=== PATIENT | female | born 1985 | race American Indian/Alaskan Native ===

== ENCOUNTER 2016-06-09 17:13 | Emergency (ER) | payer OTHER ==
[2016-06-09 20:30] VITALS: BP 118/82
--- NOTE | 2016-06-09 21:38 | Emergency Department Report ---
HPI - General Chief Complaint: Skin Rash Time Seen by Provider: 06/09/16 20:42 - HPI HPI: Patient is a 31-year-old female who presents to ED complaining of allergic rash to the skin. Patient states she was at work earlier today when she started experiencing a breakout rash on her upper neck and face region. Patient states she has history of systems no allergies but is unaware of any allergy contact. Patient also states she took a home test on and was positive. She reports less pressure. As 05/07/2016 Patient denies any fevers/chills/nausea/vomiting/dysuria/vaginal bleeding/ abdominal pain/chest pain/shortness of breath or any other problems ED Past Medical Hx - Past Medical History Previous Medical History?: Yes Hx Hypertension: No Hx Congestive Heart Failure: No Hx Diabetes: No Hx Deep Vein Thrombosis: No Hx Renal Disease: No Hx Sickle Cell Disease: No Hx Seizures: No Hx Asthma: No Hx COPD: No Hx HIV: No - Surgical History Past Surgical History?: No - Social History Smoking Status: Never Smoker Substance Use Type: Alcohol, Other - Medications Home Medications: Home Medications Medication Instructions Recorded Confirmed Last Taken Type Valacyclovir HCl [Valtrex] 500 mg PO DAILY 07/29/13 01/19/15 07/28/13 09:00 History Ferrous Sulfate [Feosol 325 MG tab] 325 mg PO BID #90 tablet 07/30/13 01/19/15 Unknown Rx HYDROcodone/APAP 5-325 [[place] 1 each PO Q6HR PRN #15 tablet 01/19/15 Unknown Rx 5-325 mg TAB] Ibuprofen [Motrin 800 MG tab] 800 mg PO TID PRN #30 tablet 01/19/15 Unknown Rx Cyclobenzaprine [Flexeril] 10 mg PO BID PRN #10 tablet 01/19/16 Unknown Rx Ibuprofen [Motrin 600 MG tab] 600 mg PO Q6HR #30 tablet 01/19/16 Unknown Rx Vit-Fe Fumar-FA [ 1 each PO QDAY #90 tablet 06/09/16 Unknown Rx Vitamin] Triamcinolone 0.1% [Kenalog 0.1% 1 applic TP TID #30 gm 06/09/16 Unknown Rx CREAM] diphenhydrAMINE [Benadryl CAP] 50 mg PO QHS PRN #15 capsule 06/09/16 Unknown Rx ED Review of Systems ROS: Stated complaint: RASH / Other details as noted in HPI Constitutional: denies: chills, fever Eyes: denies: eye pain, eye discharge, vision change ENT: denies: ear pain, throat pain, dental pain, hearing loss, congestion Respiratory: denies: cough, shortness of breath, wheezing Cardiovascular: denies: chest pain, palpitations Endocrine: no symptoms reported Gastrointestinal: denies: abdominal pain, nausea, diarrhea Genitourinary: denies: urgency, dysuria, discharge Musculoskeletal: denies: back pain, joint swelling, arthralgia Skin: denies: rash, lesions Neurological: denies: headache, weakness, paresthesias Psychiatric: denies: anxiety, depression Hematological/Lymphatic: denies: easy bleeding, easy bruising Physical Exam - Physical Exam Vital Signs: Vital Signs 06/09/16 06/09/16 17:38 20:28 Temperature 98.9 F 98.1 F Pulse Rate 95 H 91 H Respiratory 18 20 Rate Blood Pressure 136/82 Blood Pressure 118/82 [Left] O2 Sat by Pulse 98 99 Oximetry Physical Exam: GENERAL: Alert and oriented x3, no apparent distress, Normal Gait, atraumatic. HEAD: Head is normocephalic and a-traumatic. EYES: Extra ocular muscles are intact. Pupils are equal, round, and reactive to light and accommodation. MOUTH:Mouth is well hydrated and without lesions. Tonsils nonerythematous or swollen, Uvula midline, Tongue not elevated. Mucous membranes are moist. Posterior pharynx clear, no exudate or lesions. Patent airways. NECK: Supple. Non edematous, No carotid bruits. No lymphadenopathy or thyromegaly. LUNGS: Symetrical with respiration, No wheezing, no rales or crackles, CTAB. HEART: S1, S2 present, regular rate and rhythm without murmur, no rubs, no gallops. ABDOMEN: No organomegaly was noted,Positive bowel sounds, soft, and non- distended. . Nontender to palpation on all Quadrants, NO CVA tenderness. EXTREMITIES/MUSCULOSKELETAL: No cyanosis, clubbing, rash, lesions or edema. Full ROM bilaterally. UE/LE Pulses 2+ bilaterally. LE and UE 5+ strength bilaterally NEUROLOGIC: No focal Deficit, Cranial nerves II through XII are grossly intact. No loss of sensation, PSYCHIATRIC: Mood is congruent with affect, denies suicidal or homicidal ideations. SKIN: Warm and dry, generalized maculopapular lesions spread across frontal aspect of the neck and forehead ED Course Vital Signs 06/09/16 06/09/16 17:38 20:28 Temperature 98.9 F 98.1 F Pulse Rate 95 H 91 H Respiratory 18 20 Rate Blood Pressure 136/82 Blood Pressure 118/82 [Left] O2 Sat by Pulse 98 99 Oximetry ED Medical Decision Making - Medical Decision Making She will female presents with allergic dermatitis. ED course: Discussed the patient limited medications in . Discussed continue to take Benadryl and Zyrtec. Discussed triamcinolone cream to use at home for rash. Patient states she has an appointment with GLOVE BRUSHER on Saturday. Discussed to keep appointment Vital signs are stable patient is in no acute respiratory distress. Critical care attestation.: If time is entered above; I have spent that time in minutes in the direct care of this critically ill patient, excluding procedure time. ED Disposition Clinical Impression: Allergic dermatitis Disposition: DISCHARGED TO HOME OR SELFCARE Is pt being admited?: No Does the pt Need Aspirin: No Condition: Stable Instructions: Contact Dermatitis (ED) Prescriptions: diphenhydrAMINE [Benadryl CAP] 50 mg PO QHS PRN #15 capsule PRN Reason: Allergic Reaction Vit-Fe Fumar-FA [ Vitamin] 1 each PO QDAY #90 tablet Triamcinolone 0.1% [Kenalog 0.1% CREAM] 1 applic TP TID #30 gm Referrals: PRIMARY CAREMD [Primary Care Provider] - 3-5 Days BRE DALTON MD [Referring] - 3-5 Days JUANCHO BAJWA MD [Staff Physician] - 3-5 Days Forms: Work/School Release Form(ED) Time of Disposition: 21:50
== END 2016-06-09 22:05 | disposition home or self-care (01) ==
LOC: ED 17:13
DX: L23.9 Allergic contact dermatitis, unspecified cause (principal)
CPT/HCPCS: 99282

== ENCOUNTER 2018-10-13 09:11 | Emergency (ER) | payer BC, MEDICAID, OTHER, SELFPAY ==
[2018-10-13 09:26] VITALS: BP 118/83
--- NOTE | 2018-10-13 09:50 | Emergency Department Report ---
Minor Respiratory - HPI Chief Complaint: Earache Stated Complaint: LFT EAR PAIN/COUGH Time Seen by Provider: 10/13/18 09:35 Pain Location: Facial, Chest Severity: moderate Minor Respiratory: Yes Able to Tolerate Fluids, Yes Ear Pain, Yes Cough, No Rhinorrhea, No Sore Throat, No Sick Contacts, No Hemoptysis, No Chest Pain, No Shortness of Breath, No Fever Other History: Patient is a 33-year-old female who comes to the ER with a 2 week history of cough and congestion. She has complained of left ear pain and a progressively worsening cough. She was seen in the urgent care and they gave her cough medicine. A week later she went back to the urgent care and they gave her another cough medicine. She comes to the ER today stating that she is getting no better. Patient denies any major medical problems and is on cough med PRN- which she stopped because it does not work. Denies fever. endorses chills. ED Review of Systems ROS: Stated complaint: LFT EAR PAIN/COUGH Other details as noted in HPI Comment: All other systems reviewed and negative ED Past Medical Hx - Past Medical History Previous Medical History?: No Hx Hypertension: No Hx Congestive Heart Failure: No Hx Diabetes: No Hx Deep Vein Thrombosis: No Hx Renal Disease: No Hx Sickle Cell Disease: No Hx Seizures: No Hx Asthma: No Hx COPD: No Hx HIV: No - Surgical History Past Surgical History?: No - Family History Family history: no significant - Social History Smoking Status: Never Smoker Substance Use Type: None - Medications Home Medications: Home Medications Medication Instructions Recorded Confirmed Last Taken Type Amoxicillin/K Clav Tab [Augmentin 1 each PO Q12HR #20 tablet 10/13/18 Unknown Rx 500 MG TAB] Benzonatate [Tessalon Perles] 100 mg PO Q12H PRN #20 capsule 10/13/18 Unknown Rx Cetirizine HCl [ZyrTEC] 10 mg PO DAILY #30 capsule 10/13/18 Unknown Rx Fluticasone [Flonase] 1 spray NS QDAY #1 bottle 10/13/18 Unknown Rx predniSONE [Deltasone] 20 mg PO DAILY #5 tablet 10/13/18 Unknown Rx Minor Respiratory Exam - Exam General: Vital signs noted. No distress. Alert and acting appropriately. HEENT: Yes Moist Mucous Membranes, Yes Maxillary Tenderness, No Pharyngeal Erythema, No Pharyngeal Exudates, No Rhinorrhea, No Conjuctival Injection, No Frontal Tenderness Ear: Left TM Erythema, Left EAC Pain Neck: Yes Supple, No Adenopathy Lungs: Yes Good Air Exchange, Yes Wheezes, Yes Cough, No Ronchi, No Stridor, No Labored Respirations, No Retractions, No Use of Accessory Muscles, No Other Abnormal Lung Sounds Heart: Yes Regular Abdomen: Yes Normal Bowel Sounds, No Tenderness, No Peritoneal Signs Skin: No Rash Neurologic: Alert and oriented, no deficits. Musculoskeletal: Unremarkable. ED Course Vital Signs 10/13/18 09:24 Temperature 98.0 F Pulse Rate 74 Respiratory 20 Rate Blood Pressure 118/83 O2 Sat by Pulse 100 Oximetry ED Medical Decision Making - Medical Decision Making l TM bulging rhonchi bilateral lungs with cough pos max sinus tenderness medicated in ER Dc home with dc plan of care and follow up with pcp Vital Signs 10/13/18 10/13/18 09:24 10:09 Temperature 98.0 F Pulse Rate 74 Respiratory 20 18 Rate Blood Pressure 118/83 O2 Sat by Pulse 100 Oximetry - Differential Diagnosis urti v allergies Critical care attestation.: If time is entered above; I have spent that time in minutes in the direct care of this critically ill patient, excluding procedure time. ED Disposition Clinical Impression: URTI (acute upper respiratory infection), Sinusitis, Bronchitis Disposition: DC-01 TO HOME OR SELFCARE Is pt being admited?: No Does the pt Need Aspirin: No Condition: Stable Instructions: Upper Respiratory Infection (ED), Acute Bronchitis (ED) Additional Instructions: hydrate well with water motrin or tylenol for aches or fever meds as ordered follow up with pcp next week to be sure you are getting better rest Prescriptions: Amoxicillin/K Clav Tab [Augmentin 500 MG TAB] 1 each PO Q12HR #20 tablet predniSONE [Deltasone] 20 mg PO DAILY #5 tablet Fluticasone [Flonase] 1 spray NS QDAY #1 bottle Benzonatate [Tessalon Perles] 100 mg PO Q12H PRN #20 capsule PRN Reason: Cough Cetirizine HCl [ZyrTEC] 10 mg PO DAILY #30 capsule Referrals: MITCHELL HUIZAR MD [Staff Physician] - 3-5 Days Time of Disposition: 09:58
[2018-10-13] MEDS ORDERED: PROVENTIL IH ONE (09:54)
[2018-10-13] MEDS ORDERED: AUGMENTIN 500 MG PO ONE (09:55)
[2018-10-13] MEDS ORDERED: IBUPROFEN PO ONE (09:55)
[2018-10-13] MEDS ORDERED: DECADRON IM ONE (09:55)
== END 2018-10-13 10:27 | disposition home or self-care (01) ==
LOC: ED 09:11
DX: J32.9 Chronic sinusitis, unspecified (principal); J40 Bronchitis, not specified as acute or chronic; Z79.899 Other long term (current) drug therapy
CPT/HCPCS: 94640; 96372; 99282; J1100; 94644

== ENCOUNTER 2018-12-19 03:26 | Emergency (ER) | payer BC, MEDICAID ==
[2018-12-19 04:04] LABS: Hematocrit 38.7 % (30.3-42.9); Hemoglobin 13.4 gm/dl (10.1-14.3); Mean Corpuscular HGB Conc 35 % (30-34); Mean Corpuscular Volume 84 fl (79-97); Platelet Count 278 K/mm3 (140-440); Red Blood Count 4.62 M/mm3 (3.65-5.03); Red Cell Distribution Width 13.8 % (13.2-15.2)
[2018-12-19 04:23] LABS: Basophils % (Auto) 0.6 % (0.0-1.8); Eosinophils # (Auto) 0.2 K/mm3 (0.0-0.4); Eosinophils % (Auto) 2.6 % (0.0-4.3); Lymphocytes # (Auto) 3.1 K/mm3 (1.2-5.4); Lymphocytes % (Auto) 41.1 % (13.4-35.0); Monocytes # (Auto) 0.7 K/mm3 (0.0-0.8); Monocytes % (Auto) 9.2 % (0.0-7.3)
[2018-12-19 04:35] LABS: Alanine Aminotransferase 23 units/L (7-56); Albumin 4.2 g/dL (3.9-5); BUN/Creatinine Ratio 19; Blood Urea Nitrogen 17 mg/dL (7-17); Calcium 8.6 mg/dL (8.4-10.2); Hemolysis Index 12
[2018-12-19] MEDS ORDERED: ONDANSETRON 4 MG/2 ML INJ IV ONE (04:37)
[2018-12-19] MEDS ORDERED: FAMOTIDINE 20 MG/2 ML INJ IV ONE (04:37)
[2018-12-19] MEDS ORDERED: KETOROLAC 30 MG/1 ML INJ IV ONE (04:37)
[2018-12-19 06:11] LABS: Bilirubin,Urine NEG (Negative); Blood,Urine NEG (Negative); Color,Urine Yellow (Yellow); Mucus,Urine FEW /HPF; Protein,Urine <15 mg/dL mg/dL (Negative); Urobilinogen,Urine < 2.0 mg/dL (<2.0); WBC,Urine < 1.0 /HPF (0.0-6.0)
--- NOTE | 2018-12-19 06:22 | Cat Scan Report ---
CT ABDOMEN AND PELVIS WITHOUT CONTRAST INDICATION / CLINICAL INFORMATION: MAIN: Right flank pain SINCE I DAY AGO. TECHNIQUE: Axial CT images were obtained through the abdomen and pelvis without IV contrast. All CT scans at [facility] location are performed using CT dose reduction for ALARA by means of automated exposure control. COMPARISON: None available. FINDINGS: LOWER CHEST: No significant abnormality. LIVER: Punctate calcified granulomas. GALLBLADDER: The gallbladder is round and distended, filled with numerous stones. There is minimal ga llbladder wall thickening, but no significant pericholecystic inflammatory change. BILE DUCTS: No significant abnormality. PANCREAS: No significant abnormality. SPLEEN: Punctate calcified granulomas. ADRENALS: No significant abnormality. RIGHT KIDNEY and URETER: No significant abnormality. LEFT KIDNEY and URETER: No significant abnormality. STOMACH and SMALL BOWEL: No significant abnormality. COLON: No significant abnormality. APPENDIX: No significant abnormality. PERITONEUM: No free fluid. No free air. No fluid collection. LYMPH NODES: No significant adenopathy. AORTA and ARTERIES: No significant abnormality. IVC and VEINS: No significant abnormality. URINARY BLADDER: No significant abnormality. REPRODUCTIVE ORGANS: No significant abnormality. ADDITIONAL FINDINGS: None. SKELETAL SYSTEM: No significant abnormality. IMPRESSION: 1. Numerous gallstones within a round, distended gallbladder with minimal wall thickening, but no sig nificant pericholecystic inflammatory change. Recommend correlation for focal right upper quadrant te nderness to exclude acute cholecystitis. 2. No hydronephrosis or nephrolithiasis. Signer Name: Tracie Monique MD Signed: 12/19/2018 6:17 AM Workstation Name: [id number]
--- NOTE | 2018-12-19 06:36 | Emergency Department Report ---
<ANGELANKIT BYRNES - Last Filed: 12/19/18 06:58> ED Abdominal Pain HPI - General Chief Complaint: Abdominal Pain Stated Complaint: RT SIDE PAIN, BACK PAIN Source: patient Mode of arrival: Ambulatory Limitations: No Limitations - History of Present Illness Initial Comments: Patient is a 33-year-old -[place] female with no past medical history who presents to the ED with complaint of acute onset persistent severe right flank pain that radiates to the right upper quadrant for the last 2 hours with nausea. Patient states that she was asleep but was woken up with severe sharp pain in her right flank that has gone constantly been radiating the right upper quadrant area since onset. Patient denies vomiting, diarrhea, hematuria, dysuria, urinary frequency and urgency, change in vision, chest pain, shortness of breath, sore throat, back pain, he will lifting, traumatic injury, vaginal bleeding, fever, chills, or headache. MD Complaint: abdominal pain, flank pain (right flank), other (nausea) -: Sudden, hour(s) (2) Location: RUQ, R flank Radiation: RUQ, R flank Migration to: no migration Severity scale (0 -10): 5 Quality: cramping, aching, sharp Consistency: constant Improves With: nothing Worsens With: nothing Associated Symptoms: denies other symptoms, nausea. denies: vomiting, diarrhea, fever, constipation, dysuria, hematemesis, hematochezia, melena, anorexia - Related Data Previous Rx's Medication Instructions Recorded Last Taken Type Amoxicillin/K Clav Tab [Augmentin 1 each PO Q12HR #20 tablet 10/13/18 Unknown Rx 500 MG TAB] Benzonatate [Tessalon Perles] 100 mg PO Q12H PRN #20 capsule 10/13/18 Unknown Rx Cetirizine HCl [ZyrTEC] 10 mg PO DAILY #30 capsule 10/13/18 Unknown Rx Fluticasone [Flonase] 1 spray NS QDAY #1 bottle 10/13/18 Unknown Rx predniSONE [Deltasone] 20 mg PO DAILY #5 tablet 10/13/18 Unknown Rx traMADol [Ultram] 50 mg PO Q6HR PRN #12 tablet 11/26/18 Unknown Rx Ondansetron [Zofran Odt] 4 mg PO Q8HR #10 tab.rapdis 12/19/18 Unknown Rx oxyCODONE /ACETAMINOPHEN [Percocet 1 tab PO Q6HR PRN #10 tablet 12/19/18 Unknown Rx 5/325] Allergies Allergy/AdvReac Type Severity Reaction Status Date / Time No Known Allergies Allergy Verified 11/26/18 17:51 ED Review of Systems Constitutional: denies: chills, fever Eyes: denies: eye pain, eye discharge, vision change ENT: denies: ear pain, throat pain Respiratory: denies: cough, shortness of breath, wheezing Cardiovascular: denies: chest pain, palpitations Endocrine: no symptoms reported Gastrointestinal: abdominal pain (right flank), nausea. denies: diarrhea Genitourinary: denies: urgency, dysuria, discharge Musculoskeletal: back pain. denies: joint swelling, arthralgia Skin: denies: rash, lesions Neurological: denies: headache, weakness, paresthesias Psychiatric: denies: anxiety, depression Hematological/Lymphatic: denies: easy bleeding, easy bruising ED Past Medical Hx - Past Medical History Previous Medical History?: No Hx Hypertension: No Hx Congestive Heart Failure: No Hx Diabetes: No Hx Deep Vein Thrombosis: No Hx Renal Disease: No Hx Sickle Cell Disease: No Hx Seizures: No Hx Asthma: No Hx COPD: No Hx HIV: No - Surgical History Past Surgical History?: No - Social History Smoking Status: Never Smoker Substance Use Type: None - Medications Home Medications: Home Medications Medication Instructions Recorded Confirmed Last Taken Type Amoxicillin/K Clav Tab [Augmentin 1 each PO Q12HR #20 tablet 10/13/18 Unknown Rx 500 MG TAB] Benzonatate [Tessalon Perles] 100 mg PO Q12H PRN #20 capsule 10/13/18 Unknown Rx Cetirizine HCl [ZyrTEC] 10 mg PO DAILY #30 capsule 10/13/18 Unknown Rx Fluticasone [Flonase] 1 spray NS QDAY #1 bottle 10/13/18 Unknown Rx predniSONE [Deltasone] 20 mg PO DAILY #5 tablet 10/13/18 Unknown Rx traMADol [Ultram] 50 mg PO Q6HR PRN #12 tablet 11/26/18 Unknown Rx Ondansetron [Zofran Odt] 4 mg PO Q8HR #10 tab.rapdis 12/19/18 Unknown Rx oxyCODONE /ACETAMINOPHEN [Percocet 1 tab PO Q6HR PRN #10 tablet 12/19/18 Unknown Rx 5/325] ED Physical Exam - General Limitations: No Limitations General appearance: alert, in no apparent distress - Head Head exam: Present: atraumatic, normocephalic, normal inspection - Eye Eye exam: Present: normal appearance, PERRL, EOMI Pupils: Present: normal accommodation - ENT ENT exam: Present: normal exam, normal orophraynx, mucous membranes moist, TM's normal bilaterally, normal external ear exam - Neck Neck exam: Present: normal inspection, full ROM - Respiratory Respiratory exam: Present: normal lung sounds bilaterally. Absent: respiratory distress, wheezes, rales, rhonchi, chest wall tenderness, accessory muscle use, decreased breath sounds, prolonged expiratory - Cardiovascular Cardiovascular Exam: Present: regular rate, normal rhythm, normal heart sounds. Absent: systolic murmur, diastolic murmur, rubs, gallop - GI/Abdominal GI/Abdominal exam: Present: soft, tenderness (Palpable right flank and RUQ tenderness), guarding, normal bowel sounds. Absent: rebound, rigid, hyperactive bowel sounds, hypoactive bowel sounds, organomegaly - Extremities Exam Extremities exam: Present: normal inspection, full ROM, normal capillary refill - Back Exam Back exam: Present: normal inspection, full ROM. Absent: tenderness, CVA tenderness (R), CVA tenderness (L), muscle spasm, paraspinal tenderness, vertebral tenderness - Neurological Exam Neurological exam: Present: alert, oriented X3, CN II-XII intact, normal gait - Psychiatric Psychiatric exam: Present: normal affect, normal mood - Skin Skin exam: Present: warm, dry, intact, normal color. Absent: rash ED Course - Reevaluation(s) Reevaluation #1: 12/19/18 06:46 This 33-year-old female with no past medical history presented to the ED with acute onset right flank pain that radiates to the right upper quadrant area with nausea for 12 hours. In the ED, patient is alert and oriented 3 and is not in distress but appears to be in pain. On reevaluation, patient's pain is well controlled with medications, patient resting comfortably in the bed and occasionally dozing off. Lab test results were reviewed and are all nonactionable. Abdomen pelvis CT scan without contrast shows numerous gallstones within a round, distended gallbladder with minimal wall thickening, but no significant pericholecystic inflammatory change. Recommend correlation for focal right upper quadrant tenderness to exclude acute cholecystitis. In addition, there was no hydronephrosis or nephrolithiasis. Gallbladder ultrasound was ordered and the results are pending. ED Medical Decision Making - Lab Data Result diagrams: 12/19/18 03:44 12/19/18 03:44 - Radiology Data Radiology results: report reviewed, image reviewed Findings [facility] [address] [id number] Cat Scan Report Signed Patient: JEANA ANDINO MR#: [id number] : 1985 Acct:[id number] Age/Sex: 33 / F ADM Date: 12/19/18 Loc: ED Attending Dr: Ordering Physician: NANI ESPINAL Date of Service: 12/19/18 Procedure(s): CT abdomen pelvis wo con Accession Number(s): [id number] cc: NANI ESPINAL CT ABDOMEN AND PELVIS WITHOUT CONTRAST INDICATION / CLINICAL INFORMATION: MAIN: Right flank pain SINCE I DAY AGO. TECHNIQUE: Axial CT images were obtained through the abdomen and pelvis without IV contrast. All CT scans at this location are performed using CT dose reduction for ALARA by means of automated exposure control. COMPARISON: None available. FINDINGS: LOWER CHEST: No significant abnormality. LIVER: Punctate calcified granulomas. GALLBLADDER: The gallbladder is round and distended, filled with numerous stones. There is minimal gallbladder wall thickening, but no significant pericholecystic inflammatory change. BILE DUCTS: No significant abnormality. PANCREAS: No significant abnormality. SPLEEN: Punctate calcified granulomas. ADRENALS: No significant abnormality. RIGHT KIDNEY and URETER: No significant abnormality. LEFT KIDNEY and URETER: No significant abnormality. STOMACH and SMALL BOWEL: No significant abnormality. COLON: No significant abnormality. APPENDIX: No significant abnormality. PERITONEUM: No free fluid. No free air. No fluid collection. LYMPH NODES: No significant adenopathy. AORTA and ARTERIES: No significant abnormality. IVC and VEINS: No significant abnormality. URINARY BLADDER: No significant abnormality. REPRODUCTIVE ORGANS: No significant abnormality. ADDITIONAL FINDINGS: None. SKELETAL SYSTEM: No significant abnormality. IMPRESSION: 1. Numerous gallstones within a round, distended gallbladder with minimal wall thickening, but no significant pericholecystic inflammatory change. Recommend correlation for focal right upper quadrant tenderness to exclude acute cholecystitis. 2. No hydronephrosis or nephrolithiasis. Signer Name: Tracie Monique MD Signed: 12/19/2018 6:17 AM Workstation Name: [id number] Transcribed By: [facility] Dictated By: Tracie Monique MD Electronically Authenticated By: Tracie Monique MD Signed Date/Time: 12/19/18616 DD/ 7 TD/TT: - Medical Decision Making This 33-year-old female with no past medical history presented to the ED with acute onset right flank pain that radiates to the right upper quadrant area with nausea for 12 hours. In the ED, patient is alert and oriented 3 and is not in distress but appears to be in pain. On reevaluation, patient's pain is well controlled with medications, patient resting comfortably in the bed and occasionally dozing off. Lab test results were reviewed and are all nonactionable. Abdomen pelvis CT scan without contrast shows numerous gallst ones within a round, distended gallbladder with minimal wall thickening, but no significant pericholecystic inflammatory change. Recommend correlation for focal right upper quadrant tenderness to exclude acute cholecystitis. In addition, there was no hydronephrosis or nephrolithiasis. Gallbladder ultrasound was ordered and the results are pending. Patient care was transferred to Jaqueline Yuan NP at shift change at 0700am. - Differential Diagnosis Cholelithiasis; Kidney stones; Flank pain; acute UTI; GERD ED Disposition Clinical Impression: Acute abdominal pain in right flank, Acute abdominal pain in right upper quadrant, Multiple gallstones Cholelithiasis Qualifiers: Cholelithiasis location: gallbladder Cholecystitis presence: without cholecy stitis Biliary obstruction: without biliary obstruction Qualified Code(s): K80.20 - Calculus of gallbladder without cholecystitis without obstruction Disposition: DC-01 TO HOME OR SELFCARE Condition: Stable Instructions: Abdominal Pain (ED) Additional Instructions: Take medications as directed. No drinking or driving while taking medications. Follow up with the selective referral given at discharge. Return back to the ED for worsening symptoms or concerns. Avoid greasy, spicy and fatty foods. Prescriptions: oxyCODONE /ACETAMINOPHEN [Percocet 5/325] 1 tab PO Q6HR PRN #10 tablet PRN Reason: Pain Ondansetron [Zofran Odt] 4 mg PO Q8HR #10 tab.rapdis Referrals: EDWIN NAIDU MD [Staff Physician] - 3-5 Days Time of Disposition: 06:55 Print Language: SINHALA <ALHAJIHUDSON D - Last Filed: 12/19/18 08:59> ED Review of Systems ROS: Stated complaint: RT SIDE PAIN, BACK PAIN Other details as noted in HPI ED Course Vital Signs 12/19/18 12/19/18 12/19/18 03:32 05:09 05:39 Temperature 98.6 F Pulse Rate 73 Respiratory 18 16 16 Rate Blood Pressure 142/96 O2 Sat by Pulse 100 Oximetry ED Medical Decision Making - Lab Data Result diagrams: 12/19/18 03:44 12/19/18 03:44 - Radiology Data LIMITED RUQ ABDOMINAL ULTRASOUND INDICATION: RUQ PAIN: R/O Cholecystitis. COMPARISON: Noncontrast CT abdomen and pelvis performed the same day. FINDINGS: Pancreas: Visualized portions show no significant abnormality. Abdominal Aorta: No significant abnormality. IVC: No significant abnormality. Liver: The liver measures 15 cm in length. No significant abnormality. Normal hepatopedal blood flow in the main portal vein. Gallbladder: There are numerous shadowing gallstones within the gallbladder. The gallbladder is not distended however there is mild diffuse gallbladder wall thickening measuring 4- 5 mm. No significant cervical cystic fluid. Negative Luu's sign per the technologist. Bile ducts: No significant abnormality. Common bile duct measures 5.2 mm. No obvious choledocholithiasis on ultrasound. Right kidney: No significant abnormality visualized.. Free fluid: None. Additional Findings: None. IMPRESSION: Cholelithiasis. There is mild gallbladder wall thickening but no significant distention or surrounding fluid. - Medical Decision Making Radiology ultrasound revealed Cholelithiasis. There is mild gallbladder wall thickening but no significant distention or surrounding fluid. Patient was sent home with Percocet and Zofran, instructed to follow up with the surgeon, diet to avoid that precipitates a flare-up, she verbalized understanding Critical care attestation.: If time is entered above; I have spent that time in minutes in the direct care of this critically ill patient, excluding procedure time. ED Disposition Is pt being admited?: No Does the pt Need Aspirin: No
[2018-12-19 07:12] LABS: Basophils % (Manual) 0 % (0.0-1.8); Total Cells Counted 100
[2018-12-19 07:13] LABS: Anisocytosis Few; Platelet Estimate Consistent w Auto
--- NOTE | 2018-12-19 08:26 | Ultrasound Report ---
LIMITED RUQ ABDOMINAL ULTRASOUND INDICATION: RUQ PAIN: R/O Cholecystitis. COMPARISON: Noncontrast CT abdomen and pelvis performed the same day. FINDINGS: Pancreas: Visualized portions show no significant abnormality. Abdominal Aorta: No significant abnormality. IVC: No significant abnormality. Liver: The liver measures 15 cm in length. No significant abnormality. Normal hepatopedal blood flow in the main portal vein. Gallbladder: There are numerous shadowing gallstones within the gallbladder. The gallbladder is not d istended however there is mild diffuse gallbladder wall thickening measuring 4-5 mm. No significant c ervical cystic fluid. Negative Luu's sign per the technologist. Bile ducts: No significant abnormality. Common bile duct measures 5.2 mm. No obvious choledocholithia sis on ultrasound. Right kidney: No significant abnormality visualized.. Free fluid: None. Additional Findings: None. IMPRESSION: Cholelithiasis. There is mild gallbladder wall thickening but no significant distention or surroundi ng fluid. Signer Name: Дмитрий Kamara Jr, MD Signed: 12/19/2018 8:22 AM Workstation Name: [id number]
[2018-12-19 09:42] VITALS: BP 121/85
== END 2018-12-19 09:16 | disposition home or self-care (01) ==
LOC: ED 03:26
DX: R11.0 Nausea (principal); K80.20 Calculus of gallbladder without cholecystitis without obstruction; K80.80 Other cholelithiasis without obstruction
CPT/HCPCS: 36415; 74176; 76705; 80053; 81001; 84703; 85007; 85025; 96374; 96375; 99284; J1885; J2405

== ENCOUNTER 2019-08-15 10:21 | Emergency (ER) | payer MEDICAID ==
[2019-08-15 12:08] LABS: Amorphous Crystals,Urine Few; Bilirubin,Urine NEG (Negative); Blood,Urine NEG (Negative); Color,Urine Yellow (Yellow); Mucus,Urine 3+ /HPF; Protein,Urine <15 mg/dL mg/dL (Negative)
[2019-08-15 12:29] LABS: Basophils % (Auto) 0.3 % (0.0-1.8); Eosinophils # (Auto) 0.1 K/mm3 (0.0-0.4); Eosinophils % (Auto) 0.4 % (0.0-4.3); Hematocrit 42.1 % (30.3-42.9); Hemoglobin 14.6 gm/dl (10.1-14.3); Lymphocytes # (Auto) 1.6 K/mm3 (1.2-5.4); Lymphocytes % (Auto) 10.9 % (13.4-35.0); Mean Corpuscular HGB Conc 35 % (30-34); Mean Corpuscular Volume 84 fl (79-97); Monocytes # (Auto) 0.9 K/mm3 (0.0-0.8); Monocytes % (Auto) 6.5 % (0.0-7.3); Platelet Count 258 K/mm3 (140-440); Red Cell Distribution Width 13.9 % (13.2-15.2)
[2019-08-15 12:48] LABS: Alanine Aminotransferase 35 units/L (7-56); Albumin 4.6 g/dL (3.9-5); BUN/Creatinine Ratio 19; Blood Urea Nitrogen 17 mg/dL (7-17); Calcium 9.4 mg/dL (8.4-10.2); Hemolysis Index 2
[2019-08-15 18:51] VITALS: BP 126/83
== END 2019-08-15 18:45 | disposition home or self-care (01) ==
LOC: ED 10:21
DX: K80.20 Calculus of gallbladder without cholecystitis without obstruction (principal); Z79.899 Other long term (current) drug therapy
CPT/HCPCS: 36415; 76705; 80053; 81001; 83690; 85025; Q0162

== ENCOUNTER 2020-11-16 07:37 | Emergency (ER) | payer MEDICAID ==
[2020-11-16 07:55] VITALS: BP 137/81
--- NOTE | 2020-11-16 08:59 | XRay Report ---
RIGHT ANKLE 2 VIEWS INDICATION: PAIN SP FALL. COMPARISON: None. IMPRESSION: There is mild soft tissue swelling. No acute osseous abnormality or joint pathology is a ppreciated. RIGHT FOOT 3 VIEWS INDICATION: PAIN SP FALL. COMPARISON: None. IMPRESSION: No acute osseous or soft tissue abnormality. No significant DJD. Signer Name: Дмитрий Kamara Jr, MD Signed: 11/16/2020 8:54 AM Workstation Name: [id number]
--- NOTE | 2020-11-16 09:31 | Emergency Department Report ---
ED Lower Extremity HPI - General Chief Complaint: Extremity Injury, Lower Stated Complaint: RT FOOT INJURY Time Seen by Provider: 11/16/20 08:03 Source: patient Mode of arrival: Wheelchair Limitations: No Limitations - History of Present Illness Initial Comments: 35 yo AA comes to ER p rolling her ankle last night. C/o right foot and ankle pain. Pt comes to ER via POV. 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 Pt denies any other injury. DP plus 2; mild lateral mal swelling on exam; foot warm; rapid cap refill. Complaint: ankle injury -: Sudden, hour(s) Injury: Ankle: Right, Foot: Right Type of Injury: eversion Place: home Severity: mild Severity scale (0 -10): 3 Improves With: nothing Worsens With: movement Context: fall Associated Symptoms: swelling - Related Data Previous Rx's Medication Instructions Recorded Last Taken Type Gabapentin 600 mg PO BID #30 capsule 10/01/19 Unknown Rx Ondansetron [Zofran ODT TAB] 4 mg PO Q6H PRN #20 tab.rapdis 10/01/19 Unknown Rx Acetaminophen [Acetaminophen TAB] 650 mg PO Q4H PRN tablet 10/14/19 Unknown Rx Allergies Allergy/AdvReac Type Severity Reaction Status Date / Time No Known Allergies Allergy Verified 11/26/18 17:51 ED Review of Systems ROS: Stated complaint: RT FOOT INJURY Other details as noted in HPI Comment: All other systems reviewed and negative Musculoskeletal: as per HPI ED Past Medical Hx - Past Medical History Previous Medical History?: Yes Hx Hypertension: No Hx Congestive Heart Failure: No Hx Diabetes: No Hx Deep Vein Thrombosis: No Hx Liver Disease: No Hx Renal Disease: No Hx HIV: No Additional medical history: Gallstones - Surgical History Past Surgical History?: Yes Hx Cholecystectomy: Yes - Family History Family history: no significant - Social History Smoking Status: Never Smoker Substance Use Type: None - Medications Home Medications: Home Medications Medication Instructions Recorded Confirmed Last Taken Type Gabapentin 600 mg PO BID #30 capsule 10/01/19 10/14/19 Unknown Rx Ondansetron [Zofran ODT TAB] 4 mg PO Q6H PRN #20 tab.rapdis 10/01/19 10/14/19 Unknown Rx Acetaminophen [Acetaminophen TAB] 650 mg PO Q4H PRN tablet 10/14/19 Unknown Rx ED Physical Exam - General Limitations: No Limitations General appearance: alert, in no apparent distress - Head Head exam: Present: atraumatic, normocephalic - Eye Eye exam: Present: normal appearance - ENT ENT exam: Present: mucous membranes moist - Neck Neck exam: Present: normal inspection - Respiratory Respiratory exam: Present: normal lung sounds bilaterally. Absent: respiratory distress - Cardiovascular Cardiovascular Exam: Present: regular rate, normal rhythm. Absent: systolic murmur, diastolic murmur, rubs, gallop - GI/Abdominal GI/Abdominal exam: Present: soft, normal bowel sounds - Extremities Exam Extremities exam: Present: normal inspection - Expanded Lower Extremity Exam Right Lower Leg exam: Present: normal inspection Ankle exam: Present: full ROM, tenderness, swelling Foot/Toe exam: Present: tenderness Neuro vascular tendon exam: Present: no vascular compromise Gait: Positive: observed and limited by pain - Back Exam Back exam: Present: normal inspection - Neurological Exam Neurological exam: Present: alert, oriented X3 - Psychiatric Psychiatric exam: Present: normal affect, normal mood - Skin Skin exam: Present: warm, dry, intact, normal color. Absent: rash ED Course Vital Signs 11/16/20 07:53 Temperature 98.3 F Pulse Rate 76 Respiratory 16 Rate Blood Pressure 137/81 O2 Sat by Pulse 100 Oximetry ED Lower Extremity MDM - Radiology Data Radiology results: report reviewed, image reviewed no fx - Medical Decision Making Vital Signs 11/16/20 07:53 Temperature 98.3 F Pulse Rate 76 Respiratory 16 Rate Blood Pressure 137/81 O2 Sat by Pulse 100 Oximetry xray noted medicated for pain levon/crutches for comfort Pt d/c home with dc plan of care including RICE, pain management and ortho follow up. Pt verbalizes understanding of plan of care. On d/c RLE remains neurovasc intact with plus 2 DP - before and after placement of levon wrap - Differential Diagnosis ro fx Critical care attestation.: If time is entered above; I have spent that time in minutes in the direct care of this critically ill patient, excluding procedure time. ED Disposition Clinical Impression: Ankle sprain, Foot sprain Disposition: HOME / SELF CARE / HOMELESS Is pt being admited?: No Does the pt Need Aspirin: No Condition: Stable Instructions: Ankle Sprain Additional Instructions: rest ice elevate levon for comfort crutches for comfort follow up ortho tez for reeval referral below Referrals: LIZZIE GHOSH MD [Staff Physician] - 3-5 Days Time of Disposition: 09:30
== END 2020-11-16 09:58 | disposition home or self-care (01) ==
LOC: ED 07:37
DX: S93.601A Unspecified sprain of right foot, initial encounter (principal); S93.401A Sprain of unspecified ligament of right ankle, initial encounter; K80.80 Other cholelithiasis without obstruction; Z98.890 Other specified postprocedural states; X58.XXXA Exposure to other specified factors, initial encounter; Y93.89 Activity, other specified; Y92.89 Other specified places as the place of occurrence of the external cause; Y99.8 Other external cause status
CPT/HCPCS: 99283

== ENCOUNTER 2021-04-13 18:43 | Emergency (ER) | payer MEDICAID ==
[2021-04-13 18:52] VITALS: BP 121/88
[2021-04-13] MEDS ORDERED: SODIUM CHLORIDE 0.9% 1000 ML 1,000 ML IV ONE (19:02)
[2021-04-13] MEDS ORDERED: FAMOTIDINE 20 MG/2 ML INJ IV ONE (19:02)
[2021-04-13] MEDS ORDERED: diphenhydrAMINE 50 MG/ML VIAL IV ONE (19:02)
[2021-04-13] MEDS ORDERED: dexAMETHasone 20 MG/5 ML VIAL IV ONE (19:02)
--- NOTE | 2021-04-13 20:28 | Emergency Department Report ---
ED General Adult HPI - General Chief complaint: Allergic Reaction Stated complaint: ALLERGIC REACTION Time Seen by Provider: 04/13/21 19:03 Source: patient Mode of arrival: Ambulatory Limitations: No Limitations - History of Present Illness Initial comments: 36-year-old -[place] female patient presents with diffuse itchiness and hives after receiving an allergy shot from her biomedical equipment specialist earlier today. She states her symptoms started about 3:57 PM. She took one Benadryl and some symptoms improved. She states she initially did have some wheezing, but denies any dysphagia, swelling of the throat, or chest pain. No known drug allergies per patient. - Related Data Previous Rx's Medication Instructions Recorded Last Taken Type Gabapentin 600 mg PO BID #30 capsule 10/01/19 Unknown Rx Ondansetron [Zofran ODT TAB] 4 mg PO Q6H PRN #20 tab.rapdis 10/01/19 Unknown Rx Acetaminophen [Acetaminophen TAB] 650 mg PO Q4H PRN tablet 10/14/19 Unknown Rx Famotidine [Pepcid] 20 mg PO BID 7 Days #14 tablet 04/13/21 Unknown Rx Loratadine [Claritin] 10 mg PO QDAY 7 Days #7 tab 04/13/21 Unknown Rx Prednisone [predniSONE 10 mg 10 mg PO .TAPER #1 pack 04/13/21 Unknown Rx (6-Day Pack, 21 Tabs)] Allergies Allergy/AdvReac Type Severity Reaction Status Date / Time No Known Allergies Allergy Verified 11/26/18 17:51 ED Review of Systems ROS: Stated complaint: ALLERGIC REACTION Other details as noted in HPI Constitutional: denies: chills, fever, malaise Respiratory: see HPI. denies: cough, shortness of breath Cardiovascular: denies: chest pain Skin: rash, pruritus ED Past Medical Hx - Past Medical History Previous Medical History?: Yes Hx Hypertension: No Hx Congestive Heart Failure: No Hx Diabetes: No Hx Deep Vein Thrombosis: No Hx Liver Disease: No Hx Renal Disease: No Hx HIV: No Additional medical history: Gallstones - Surgical History Past Surgical History?: Yes Hx Cholecystectomy: Yes - Social History Smoking Status: Never Smoker Substance Use Type: None - Medications Home Medications: Home Medications Medication Instructions Recorded Confirmed Last Taken Type Gabapentin 600 mg PO BID #30 capsule 10/01/19 10/14/19 Unknown Rx Ondansetron [Zofran ODT TAB] 4 mg PO Q6H PRN #20 tab.rapdis 10/01/19 10/14/19 Unknown Rx Acetaminophen [Acetaminophen TAB] 650 mg PO Q4H PRN tablet 10/14/19 Unknown Rx Famotidine [Pepcid] 20 mg PO BID 7 Days #14 tablet 04/13/21 Unknown Rx Loratadine [Claritin] 10 mg PO QDAY 7 Days #7 tab 04/13/21 Unknown Rx Prednisone [predniSONE 10 mg 10 mg PO .TAPER #1 pack 04/13/21 Unknown Rx (6-Day Pack, 21 Tabs)] ED Physical Exam - General Limitations: No Limitations General appearance: alert, in no apparent distress, obese - Head Head exam: Present: atraumatic, normocephalic - Eye Eye exam: Present: normal appearance. Absent: scleral icterus - ENT ENT exam: Present: normal exam, normal orophraynx - Neck Neck exam: Present: normal inspection - Respiratory Respiratory exam: Present: normal lung sounds bilaterally. Absent: respiratory distress, wheezes, rales, rhonchi, stridor, accessory muscle use - Cardiovascular Cardiovascular Exam: Present: normal rhythm, tachycardia, normal heart sounds - Extremities Exam Extremities exam: Present: full ROM - Neurological Exam Neurological exam: Present: alert, oriented X3, normal gait - Psychiatric Psychiatric exam: Present: normal affect, normal mood - Skin Skin exam: Present: warm, dry, intact, urticaria (Diffuse noted to bilateral legs arms chest abdomen and neck) ED Course Vital Signs 04/13/21 04/13/21 18:51 20:42 Temperature 98.6 F Pulse Rate 133 H 94 H Respiratory 18 Rate Blood Pressure 121/88 O2 Sat by Pulse 100 Oximetry ED Medical Decision Making - Medical Decision Making 36-year-old -[place] female patient presents with diffuse itchiness and hives after receiving an allergy shot from her biomedical equipment specialist earlier today. She states her symptoms started about 3:57 PM. She took one Benadryl and some symptoms improved. She states she initially did have some wheezing, but denies any dysphagia, swelling of the throat, or chest pain. No known drug allergies per patient. Heart rate rechecked at 112 bpm. Patient states she has not drink any water today. Suspect dehydration. Hives significantly improved after Decadron, Benadryl, and Pepcid. She continues to deny any shortness of breath, chest pain, or tightness in the throat. No wheezing noted on exam. Patient is well- appearing and stable for discharge home. Prednisone, Pepcid, Claritin given for home. She is to follow-up with her biomedical equipment specialist within 24 to 48 hours. Discussed in detail signs and symptoms that should prompt immediate return to the ED, patient verbalizes understand Critical care attestation.: If time is entered above; I have spent that time in minutes in the direct care of this critically ill patient, excluding procedure time. ED Disposition Clinical Impression: Allergic reaction Disposition: 01 HOME / SELF CARE / HOMELESS Is pt being admited?: No Condition: Stable Instructions: Hives Additional Instructions: Please follow-up with your biomedical equipment specialist within 24 to 48 hours Prescriptions: Loratadine [Claritin] 10 mg PO QDAY 7 Days #7 tab Famotidine [Pepcid] 20 mg PO BID 7 Days #14 tablet Prednisone [predniSONE 10 mg (6-Day Pack, 21 Tabs)] 10 mg PO .TAPER #1 pack Forms: Work/School Release Form(ED)
== END 2021-04-13 21:28 | disposition home or self-care (01) ==
LOC: ED 18:43
DX: T78.40XA Allergy, unspecified, initial encounter (principal); T45.0X5A Adverse effect of antiallergic and antiemetic drugs, initial encounter; Z90.49 Acquired absence of other specified parts of digestive tract; Z79.899 Other long term (current) drug therapy; X58.XXXA Exposure to other specified factors, initial encounter
CPT/HCPCS: 96361; 96374; 96375; 99282; J1100; J1200; J3490; J7030; Q0162